=== PATIENT | female | born 1980 | race Caucasian/White ===

== ENCOUNTER 2020-03-16 14:54 | Outpatient (CLI) | payer BC ==
[2016-03-16 14:43] VITALS: BMI 24.1
[~2020-03-16 14:54] MED LIST: AMBIEN10 MG PO; EFFEXOR XR75 MG PO; HYDROCODON-ACE1 EAC7 PO; MELATONIN 3 MG1 TAB PO; NEXIUM20 MG PO; OMEPRAZOLE40 MG PO; XANAX0.5 MG PO
== END 2020-03-16 23:59 | disposition home or self-care (01) ==
LOC: D.MAMMO 14:54
PROVIDERS: ATTEND Family Medicine
DX: Z12.31 Encounter for screening mammogram for malignant neoplasm of breast (principal)

== ENCOUNTER → 2020-10-07 07:37 | Outpatient (CLI) | payer MEDICAID ==
[2016-03-16 14:43] VITALS: BMI 24.1
== END | disposition home or self-care (01) ==
LOC: D.MRI 07:37
PROVIDERS: ATTEND Psychiatry & Neurology Neurology
DX: G37.9 Demyelinating disease of central nervous system, unspecified (principal)

== ENCOUNTER → 2020-11-26 09:42 | Outpatient (CLI) | payer BC ==
[2016-03-16 14:43] VITALS: BMI 24.1
== END | disposition home or self-care (01) ==
LOC: D.MRI 09:42
PROVIDERS: ATTEND Psychiatry & Neurology Neurology
DX: G37.9 Demyelinating disease of central nervous system, unspecified (principal)